=== PATIENT | female | born 1960 | race Caucasian/White ===

== ENCOUNTER 2017-03-01 17:52 | Emergency (ER) | payer BC ==
[~2017-03-01] VITALS: Ht 167.6 cm; Wt 73.0 kg
[~2017-03-01 17:52] MED LIST: PRED20 PO
[2017-03-01 17:55] VITALS: BP 200/106; PULSE 90; RESP 26; TEMP 98.4; O2SAT 98
--- NOTE | 2017-03-01 19:33 | RADRPT ---
EXAM DATE/TIME: 03/01/2017 18:30 [facility] COMPARISON: No previous studies available for comparison. INDICATIONS : Left shoulder pain post fall today. MEDICAL HISTORY : None. SURGICAL HISTORY : None. ENCOUNTER: Initial ACUITY: 1 day PAIN SCORE: 8/10 LOCATION: Left shoulder. FINDINGS: There is fracturing of the left proximal humeral shaft. The glenohumeral and acromioclavicular joints are normally aligned. No other fracture is seen. CONCLUSION: Fracturing of the proximal left humeral shaft. Ravindra Moralez MD on March 01, 2017 at 19:31 Board Certified Radiologist. This report was verified electronically.
--- NOTE | 2017-03-01 20:19 | RADRPT ---
EXAM DATE/TIME: 03/01/2017 18:52 [facility] COMPARISON: No previous studies available for comparison. INDICATIONS : Trauma, fell backwards onto left side. RADIATION DOSE: 45.79 CTDIvol (mGy) MEDICAL HISTORY : None SURGICAL HISTORY : None. ENCOUNTER: Initial ACUITY: 1 day PAIN SCALE: 4/10 LOCATION: cranial TECHNIQUE: Multiple contiguous axial images were obtained of the head. Using automated exposure control and adj ustment of the mA and/or kV according to patient size, radiation dose was kept as low as reasonably a chievable to obtain optimal diagnostic quality images. DICOM format image data is available electro nically for review and comparison. FINDINGS: CEREBRUM: The ventricles are normal for age. No evidence of midline shift, mass lesion, hemorrhage or acute in farction. No extra-axial fluid collections are seen. Basal ganglia calcifications are seen. POSTERIOR FOSSA: The cerebellum and brainstem are intact. The 4th ventricle is midline. The cerebellopontine angle i s unremarkable. EXTRACRANIAL: The visualized portion of the orbits is intact. SKULL: The calvaria is intact. No evidence of skull fracture. CONCLUSION: No acute disease. Ravindra Moralez MD on March 01, 2017 at 20:16 Board Certified Radiologist. This report was verified electronically.
--- NOTE | 2017-03-01 20:26 | RADRPT ---
EXAM DATE/TIME: 03/01/2017 18:52 [facility] COMPARISON: No previous studies available for comparison. INDICATIONS : Trauma, fell backwards onto left side. RADIATION DOSE: 41.28 CTDIvol (mGy) MEDICAL HISTORY : None SURGICAL HISTORY : None. ENCOUNTER: Initial ACUITY: 1 day PAIN SCALE: 4/10 LOCATION: Neck TECHNIQUE: Volumetric scanning of the cervical spine was performed. Multiplanar reconstructions i n the sagittal, coronal and oblique axial planes were performed. Using automated exposure control a nd adjustment of the mA and/or kV according to patient size, radiation dose was kept as low as reason ably achievable to obtain optimal diagnostic quality images. DICOM format image data is available e lectronically for review and comparison. FINDINGS: VERTEBRAE: Normal vertebral body height. ALIGNMENT: No evidence of subluxation. C2-C3: The bony spinal canal is normal in size. No evidence of disc bulge or herniation. The neura l foramina are bilaterally patent. C3-C4: The bony spinal canal is normal in size. No evidence of disc bulge or herniation. The neura l foramina are bilaterally patent. C4-C5: Disc demonstrates decreased height. There is very prominent posterior hypertrophic change pos terior to the C4 vertebral body and the C5 vertebral body causing a moderate impression on the anteri or aspect of the thecal sac. The neural foramina are normal. C5-C6: Disc demonstrates decreased height. There is mild disc bulge. There is prominent posterior osteophytic ridging. These changes cause moderate narrowing of the thecal sac. There is uncovertebr al hypertrophy being worse on the right. There is narrowing of the right neural foramina. The left n eural foramina appears grossly patent. C6-C7: Disc demonstrates decreased height. There is mild bulging without significant stenosis. The neural foramina are normal. C7-T1: The bony spinal canal is normal in size. No evidence of disc bulge or herniation. The neura l foramina are bilaterally patent. CONCLUSION: 1. No acute bony injury is seen. 2. Prominent degenerative change at the C4-C5 level with very prominent calcification posterior to th e C4 and C5 vertebral bodies likely related to degenerative change. Some degree of ossification of t he posterior longitudinal ligament could also be contributing to this appearance. The bony hypertroph ic change causes severe narrowing of the thecal sac at the C4-C5 level. 3. Moderate narrowing of the thecal sac at the C5-C6 level secondary to disc bulge and prominent oste ophytic ridging. Ravindra Moralez MD on March 01, 2017 at 20:17 Board Certified Radiologist. This report was verified electronically.
[2017-03-01 20:49] VITALS: BP 167/86; PULSE 74; RESP 16; O2SAT 98
[2017-03-01] MEDS ORDERED: NORC5TAB PO (21:12)
--- NOTE | 2017-03-01 21:12 | PD ---
HPI Chief Complaint: Injury Time Seen by Provider: 20:56 Travel History International Travel<30 days: No Contact w/Intl Traveler<30days: No Traveled to known affect area: No History of Present Illness HPI 57 years old female complains of left shoulder pain, and headache. Patient states that she fell this afternoon. Patient denies loss of consciousness. Patient patient states that she has mild aching headache. Patient denies any visual change. Patient denies any neck pain. Patient denies any chest pain or shortness of breath. Patient denies abdominal pain. Patient complains of severe sharp pain localized to left shoulder. Patient denies any pain radiation. Patient states that the pain is worse with movement of left shoulder joint. On a scale of 1-10 the pain is a 10. PFSH Past Medical History Diminished Hearing: No Musculoskeletal: Yes (Osteoporosis) Tetanus Vaccination: > 5 Years Influenza Vaccination: No Past Surgical History Thoracic Surgery: Yes (Cyst removed from left breast.) Social History Alcohol Use: No Tobacco Use: No Substance Use: No Allergies-Medications (Allergen,Severity, Reaction): Coded Allergies: Sulfa (Sulfonamide Antibiotics) (Unverified Allergy, Intermediate, Nausea/ Vomiting, 03/01/17) ciprofloxacin (Unverified Allergy, Intermediate, Rash, nausea, palm peeling, 03/01/17) iodine (Unverified Allergy, Intermediate, Rash, nausea, shortness of breath, 03/01/17) ipratropium (Unverified Allergy, Intermediate, Rash, nausea, 03/01/17) penicillin G (Unverified Allergy, Intermediate, Rash, nausea, shortness of breath, 03/01/17) potassium iodide (Unverified Allergy, Intermediate, Rash, nausea, shortness of breath, 03/01/17) povidone-iodine (Unverified Allergy, Intermediate, Rash, nausea, shortness of breath, 03/01/17) sodium iodide (Unverified Allergy, Intermediate, Rash, nausea, shortness of breath, 03/01/17) sodium iodide (Unverified Allergy, Intermediate, Rash, nausea, shortness of breath, 03/01/17) Uncoded Allergies: DigestActiv with Essential Enzymes Dietary Supplement (Allergy, Severe, SHORTNESS OF BREATH, 03/20/15) SWOLLEN, ITCHY RED EYES SHORTNESS OF BREATH CHEST TIGHTNESS Reported Meds & Prescriptions Reported Meds & Active Scripts Active No Active Prescriptions or Reported Medications Review of Systems General / Constitutional: No: Fever Eyes: No: Visual changes HENT: No: Headaches Cardiovascular: No: Chest Pain or Discomfort Respiratory: No: Shortness of Breath Gastrointestinal: No: Abdominal Pain Genitourinary: No: Dysuria Musculoskeletal: Positive: Pain Skin: No Rash Neurologic: No: Weakness Psychiatric: No: Depression Endocrine: No: Polydipsia Hematologic/Lymphatic: No: Easy Bruising Physical Exam Narrative GENERAL: Well-nourished, well-developed patient. SKIN: Focused skin assessment warm/dry. HEAD: Normocephalic. EYES: No scleral icterus. No injection or drainage. NECK: Supple, trachea midline. No JVD or lymphadenopathy. CARDIOVASCULAR: Regular rate and rhythm without murmurs, gallops, or rubs. RESPIRATORY: Breath sounds equal bilaterally. No accessory muscle use. GASTROINTESTINAL: Abdomen soft, non-tender, nondistended. MUSCULOSKELETAL: Patient has severe tenderness on palpation left shoulder joint. Sensory motor function distally intact. BACK: Nontender without obvious deformity. No CVA tenderness. Neurologic exam normal. Data Data Last Documented VS Vital Signs Date Time Temp Pulse Resp B/P (MAP) Pulse Ox O2 Delivery O2 Flow Rate FiO2 03/01/17 20:49 73 16 98 Room Air 03/01/17 20:49 (137) 03/01/17 17:[address] Brain W/O Iv Contrast(Rout) (03/01/17 ) Ct Cerv Spine W/O Contrast (03/01/17 ) Shoulder, Limited(2vws) (03/01/17 ) Morphine Inj (Morphine Inj) (03/01/17 21:15) Ondansetron Odt (Zofran Odt) (03/01/17 21:15) Splint Or Brace Apply/Monitor (03/01/17 21:04) MDM Medical Decision Making Medical Screen Exam Complete: Yes Emergency Medical Condition: Yes Interpretation(s) Last Impressions Shoulder X-Ray 03/01/17 0000 Signed Impressions: Service Date/Time: Wednesday, March 01, 2017 18:30 - CONCLUSION: Fracturing of the proximal left humeral shaft. Ravindra Moralez MD Head CT 03/01/17 0000 Signed Impressions: Service Date/Time: Wednesday, March 01, 2017 18:52 - CONCLUSION: No acute disease. Ravindra Moralez MD Differential Diagnosis Differential diagnosis including head injury, neck injury, shoulder injury. Narrative Course 57 years old female with head injury, left shoulder injury. Status post fall. Morphine 4 mg IM. Zofran 4 mg ODT. [id number] applied to left arm. Diagnosis Primary Impression: Fracture of left humerus Qualified Codes: S42.292A - Other displaced fracture of upper end of left humerus, initial encounter for closed fracture Additional Impression: Closed head injury Qualified Codes: S09.90XA - Unspecified injury of head, initial encounter Patient Instructions: General Instructions Med/Other Pt SpecificInfo: Prescription(s) given Scripts Hydrocodone/Acetaminophen (Rodman 5-325 Tablet) 5 Mg-325 Mg Tablet 1 TAB PO Q6HR for Pain, #20 Prov: Davidson Santillan MD 03/01/17 Disposition: 01 DISCHARGE HOME Condition: Stable Davidson Santillan MD Mar 01, 2017 21:12
[2017-03-01] MEDS ORDERED: MORPHINE SULFATE 4 MG/ML INJ IM ONE (21:15)
[2017-03-01] MEDS ORDERED: ONDANSETRON ODT 4 MG TAB PO ONE (21:15)
[2017-03-01] MEDS ORDERED: KETOROLAC TROMETHAMINE 30 MG/ML (IVP) VIAL IV PUSH ONE (22:00)
== END 2017-03-01 21:48 | disposition home or self-care (01) ==
LOC: NEPD 17:52
DX: S42.292A Other displaced fracture of upper end of left humerus, initial encounter for closed fracture (principal); S09.90XA Unspecified injury of head, initial encounter; Z87.39 Personal history of other diseases of the musculoskeletal system and connective tissue; W19.XXXA Unspecified fall, initial encounter
CPT/HCPCS: 70450; 72125; 73030; 96372; 99285; J1885; J2270

== ENCOUNTER 2017-03-03 17:13 | Inpatient (IN) | payer BC ==
[~2017-03-03] VITALS: Ht 165.1 cm; Wt 75.0 kg
[~2017-03-03 17:13] MED LIST changes: +NORC5TAB PO
[2017-03-03 17:15] VITALS: BP 186/79; PULSE 86; RESP 20; TEMP 98.5; O2SAT 99
[2017-03-03 17:33] VITALS: BP 175/86; PULSE 91; RESP 16; TEMP 98.8; O2SAT 98
[2017-03-03 17:44] VITALS: BP 175/86; PULSE 101; RESP 16; O2SAT 99
--- NOTE | 2017-03-03 17:48 | PD ---
HPI Chief Complaint: Pain: Acute or Chronic Time Seen by Provider: 17:38 Travel History International Travel<30 days: No Contact w/Intl Traveler<30days: No Traveled to known affect area: No History of Present Illness HPI 57-year-old Citizen Of [place] female previously seen on March 01 for fall with proximal humerus fracture. Patient states he was given Lortab, but developed itching and swelling to the feet and hands so she discontinued it. Patient states she was seen by an orthopedic today who stated that she should be seen immediately for possible surgical open reduction and fixation. This was not an orthopedist here at [facility], but the patient wanted to return here for further evaluation as needed. Patient states her pain is currently 8 out of 10. She complains of burning down into her left hand. She states allergies to sulfa, Cipro, hydrocodone, iodine, ipratropium, penicillin, potassium iodide , povidone iodine, and sodium iodide. PFSH Past Medical History Medical History: Denies Significant Hx Diminished Hearing: No Musculoskeletal: Yes (Osteoporosis) Immunizations Current: Yes Tetanus Vaccination: > 5 Years Influenza Vaccination: No ?: Not Past Surgical History Thoracic Surgery: Yes (Cyst removed from left breast.) Other Surgery: Yes Social History Alcohol Use: No Tobacco Use: No Substance Use: No Allergies-Medications (Allergen,Severity, Reaction): Coded Allergies: Sulfa (Sulfonamide Antibiotics) (Unverified Allergy, Intermediate, Nausea/ Vomiting, 03/03/17) ciprofloxacin (Unverified Allergy, Intermediate, Rash, nausea, palm peeling, 03/03/17) hydrocodone (Verified Allergy, Intermediate, RASH, 03/03/17) iodine (Unverified Allergy, Intermediate, Rash, nausea, shortness of breath, 03/03/17) ipratropium (Unverified Allergy, Intermediate, Rash, nausea, 03/03/17) penicillin G (Unverified Allergy, Intermediate, Rash, nausea, shortness of breath, 03/03/17) potassium iodide (Unverified Allergy, Intermediate, Rash, nausea, shortness of breath, 03/03/17) povidone-iodine (Unverified Allergy, Intermediate, Rash, nausea, shortness of breath, 03/03/17) sodium iodide (Unverified Allergy, Intermediate, Rash, nausea, shortness of breath, 03/03/17) sodium iodide (Unverified Allergy, Intermediate, Rash, nausea, shortness of breath, 03/03/17) Uncoded Allergies: DigestActiv with Essential Enzymes Dietary Supplement (Allergy, Severe, SHORTNESS OF BREATH, 03/20/15) SWOLLEN, ITCHY RED EYES SHORTNESS OF BREATH CHEST TIGHTNESS Reported Meds & Prescriptions Reported Meds & Active Scripts Active No Active Prescriptions or Reported Medications Review of Systems Except as stated in HPI: all other systems reviewed are Neg General / Constitutional: No: Fever Eyes: No: Visual changes HENT: No: Headaches Cardiovascular: No: Chest Pain or Discomfort Respiratory: No: Shortness of Breath Gastrointestinal: No: Abdominal Pain Genitourinary: No: Dysuria Musculoskeletal: Positive: Arthralgias, Limited ROM, Pain Skin: No Rash Neurologic: No: Weakness Psychiatric: No: Depression Endocrine: No: Polydipsia Hematologic/Lymphatic: No: Easy Bruising Physical Exam Narrative GENERAL: Patient appears in mild distress. SKIN: Warm and dry. Normal color. Normal turgor. Patient has noticeable resolving hives consistent with history. HEAD: Atraumatic. Normocephalic. EYES: Pupils equal and round. No scleral icterus. No injection or drainage. ENT: No nasal bleeding or discharge. Mucous membranes pink and moist. Pharynx is clear. Airway is patent. NECK: Trachea midline. Supple and nontender. CARDIOVASCULAR: Regular rate and rhythm. RESPIRATORY: No accessory muscle use. Clear to auscultation. Breath sounds equal bilaterally. GASTROINTESTINAL: Abdomen soft, non-tender, nondistended. Hepatic and splenic margins not palpable. MUSCULOSKELETAL: Extremities without clubbing, cyanosis, or edema. No obvious deformities. Patient has pain to the left shoulder with any movement. Neurovascular exam distally is intact, with immigration judge strength normal, limited by pain. NEUROLOGICAL: Awake and alert. No obvious cranial nerve deficits. Motor grossly within normal limits. Five out of 5 muscle strength in the arms and legs. Normal speech. PSYCHIATRIC: Appropriate mood and affect; insight and judgment normal. Data Data Last Documented VS Vital Signs Date Time Temp Pulse Resp B/P (MAP) Pulse Ox O2 Delivery O2 Flow Rate FiO2 03/03/17 17:44 101 16 175/86 (115) 99 Room Air 03/03/17 17:33 98.8 MDM Medical Decision Making Medical Screen Exam Complete: Yes Emergency Medical Condition: Yes Medical Record Reviewed: Yes Differential Diagnosis Left proximal humerus fracture. Need for pain control. Possible need for orthopedic ORIF. Narrative Course Patient is medically stable at time of exam per IV access is obtained patient is given 4 mg morphine IV as well as 4 mg Zofran IV. Call was placed to Dr. Montoya, orthopedic on-call, to discuss the patient. Copies of the x-rays were sent to Dr. Montoya for his review. Patient was discussed with Dr. Montoya who does feel the patient warrants ORIF. Patient will be admitted by Dr. Tariq, nothing by mouth after midnight for going to the OR tomorrow. Diagnosis Primary Impression: Closed fracture of left proximal humerus Qualified Codes: S42.292K - Other displaced fracture of upper end of left humerus, subsequent encounter for fracture with nonunion Admitting Information Admitting Physician Requests: Observation Scripts No Active Prescriptions or Reported Meds Condition: Stable Arpit Torres Mar 03, 2017 17:48
[2017-03-03 19:00] VITALS: BP 121/71; PULSE 75; RESP 16; TEMP 97.5; O2SAT 94
--- NOTE | 2017-03-03 19:29 | HHI.HP ---
HPI Service [facility] Primary Care Physician Calixto Callejas, Admission Diagnosis Left Humerous Fracture Diagnoses: (1) Fall Diagnosis: Principal (2) Proximal humerus fracture Diagnosis: Principal (3) HTN (hypertension) Diagnosis: Principal Travel History International Travel<30 Days: No Contact w/Intl Traveler <30 Da: No Traveled to Known Affected Are: No History of Present Illness This is a 57-year-old female with PMH of HTN who presented to the ER with complaints of left shoulder pain x2 days. Seen in ER on 03/01/17 after fall for similar complaints. No head trauma or LOC reported. X-ray w/ fracture of proximal left humeral shaft. D/c'd w/ José and referred to Ortho as outpatient. States she was seen by Ortho as outpatient today and sent to the ER for surgical intervention. On arrival, BP 186/79, HR 86, O2 sat 99% on RA, Afebrile. CBC unremarkable. Chemistry unremarkable. INR 1.0. CXR normal. Dr. Montoya consulted by ER physician, plan is for surgical intervention a.m. Review of Systems Except as stated in HPI: all other systems reviewed are Neg ROS: 14 point review of systems otherwise negative. Past Family Social History Past Medical History PMH: HTN Past Surgical History PAST SURGICAL HISTORY: Left Breast Cystectomy Allergies: Coded Allergies: Sulfa (Sulfonamide Antibiotics) (Unverified Allergy, Intermediate, Nausea/ Vomiting, 03/03/17) ciprofloxacin (Unverified Allergy, Intermediate, Rash, nausea, palm peeling, 03/03/17) hydrocodone (Verified Allergy, Intermediate, RASH, 03/03/17) iodine (Unverified Allergy, Intermediate, Rash, nausea, shortness of breath, 03/03/17) ipratropium (Unverified Allergy, Intermediate, Rash, nausea, 03/03/17) penicillin G (Unverified Allergy, Intermediate, Rash, nausea, shortness of breath, 03/03/17) potassium iodide (Unverified Allergy, Intermediate, Rash, nausea, shortness of breath, 03/03/17) povidone-iodine (Unverified Allergy, Intermediate, Rash, nausea, shortness of breath, 03/03/17) sodium iodide (Unverified Allergy, Intermediate, Rash, nausea, shortness of breath, 03/03/17) sodium iodide (Unverified Allergy, Intermediate, Rash, nausea, shortness of breath, 03/03/17) Uncoded Allergies: DigestActiv with Essential Enzymes Dietary Supplement (Allergy, Severe, SHORTNESS OF BREATH, 03/20/15) SWOLLEN, ITCHY RED EYES SHORTNESS OF BREATH CHEST TIGHTNESS Family History PAST FAMILY HISTORY: Reviewed. No h/o DM or CAD Social History PAST SOCIAL HISTORY: Negative for alcohol, tobacco or drugs. Physical Exam Vital Signs Vital Signs Date Time Temp Pulse Resp B/P (MAP) Pulse Ox O2 Delivery O2 Flow Rate FiO2 03/03/17 17:44 101 16 175/86 (115) 99 Room Air 03/03/17 17:33 98.8 91 16 175/86 (115) 98 03/03/17 17:15 98.5 86 20 186/79 (114) 99 Room Air Physical Exam PE: GENERAL: Pleasant middle-aged female in no acute distress. HEENT: PERRLA, EOMI. No scleral icterus or conjunctival pallor. No lid lag or facial droop. CARDIOVASCULAR: Regular rate and rhythm. No obvious murmurs to auscultation. No chest tenderness to palpation. RESPIRATORY: No obvious rhonchi or wheezing. Clear to auscultation. Breath sounds equal bilaterally. GASTROINTESTINAL: Abdomen soft, non-tender, nondistended. BS normal. MUSCULOSKELETAL: Extremities without clubbing, cyanosis, or edema. No obvious deformities. Decreased ROM of LUE due to pain. NEUROLOGICAL: Awake, alert and oriented x4. No focal neurologic deficits. Moving both upper and lower extremities spontaneously. Caprini VTE Risk Assessment Caprini VTE Risk Assessment: Mod/High Risk (score >= 2) Caprini Risk Assessment Model Point Value = 1 Point Value = 2 Point Value = 3 Point Value = 5 Age 41-60 Minor surgery BMI > 25 kg/m2 Swollen legs Varicose veins or History of unexplained or recurrent spontaneous Oral contraceptives or hormone replacement Sepsis (< 1 month) Serious lung disease, including pneumonia (< 1 month) Abnormal pulmonary function Acute myocardial infarction Congestive heart failure (< 1 month) History of inflammatory bowel disease Medical patient at bed rest Age 61-74 Arthroscopic surgery Major open surgery (> 45 min) Laparoscopic surgery (> 45 min) Malignancy Confined to bed (> 72 hours) Immobilizing plaster cast Central venous access Age >= 75 History of VTE Family history of VTE Factor V Leiden Prothrombin [id number] Lupus anticoagulant Anticardiolipin antibodies Elevated serum homocysteine Heparin-induced thrombocytopenia Other congenital or acquired thrombophilia Stroke (< 1 month) Elective arthroplasty Hip, pelvis, or leg fracture Acute spinal cord injury (< 1 month) Prophylaxis Regimen Total Risk Factor Score Risk Level Prophylaxis Regimen 0-1 Low Early ambulation 2 Moderate Order ONE of the following: *Sequential Compression Device (SCD) *Heparin 5000 units SQ BID 3-4 Higher Order ONE of the following medications: *Heparin 5000 units SQ TID *Enoxaparin/Lovenox 40 mg SQ daily (WT < 150 kg, CrCl > 30 mL/min) *Enoxaparin/Lovenox 30 mg SQ daily (WT < 150 kg, CrCl > 10-29 mL/min) *Enoxaparin/Lovenox 30 mg SQ BID (WT < 150 kg, CrCl > 30 mL/min) AND/OR *Sequential Compression Device (SCD) 5 or more Highest Order ONE of the following medications: *Heparin 5000 units SQ TID (Preferred with Epidurals) *Enoxaparin/Lovenox 40 mg SQ daily (WT < 150 kg, CrCl > 30 mL/min) *Enoxaparin/Lovenox 30 mg SQ daily (WT < 150 kg, CrCl > 10-29 mL/min) *Enoxaparin/Lovenox 30 mg SQ BID (WT < 150 kg, CrCl > 30 mL/min) AND *Sequential Compression Device (SCD) Assessment and Plan Problem List: (1) Fall ICD Code: W19.XXXA - Unspecified fall, initial encounter (2) Proximal humerus fracture ICD Code: S42.209A - Unspecified fracture of upper end of unspecified humerus, initial encounter for closed fracture (3) HTN (hypertension) ICD Code: I10 - Essential (primary) hypertension Assessment and Plan A/P: 1. Fall: s/p mechanical fall 03/01/17, seen in ER at that time, CT Head/C- Spine from 03/01/17 w/ no acute findings, images reviewed by me. 2. Left Prox Humerus Fx: secondary to above. Shoulder X-ray 03/01/17 w/ fracture of proximal left humeral shaft, images reviewed by me. Seen by Ortho today, referred to ER for surgical intervention. Dr. Montoya consulted, plan is for surgery in am. NPO, IVF, analgesics/antiemetics as needed. CXR w/ no acute findings, images reviewed by me. Pre-op labs unremarkable. 3. HTN: BP uncontrolled, likely compounded by pain complaints. BP 186/79, HR 86 on arrival, currently 133/70, HR 82 after analgesics. Monitor BP, optimize pain control 4. DVT Prophylaxis: Anticoagulation post op per Ortho 5. Social work for d/c planning as needed. 6. Case discussed w/ ER physician at length. Physician Certification 2 Midnight Certification Type: Admission for Inpatient Services Order for Inpatient Services The services are ordered in accordance with Medicare regulations or non- Medicare payer requirements, as applicable. In the case of services not specified as inpatient-only, they are appropriately provided as inpatient services in accordance with the 2-midnight benchmark. Estimated LOS (days): 2 days is the estimated time the patient will need to remain in the hospital, assuming treatment plan goals are met and no additional complications. Post-Hospital Plan: Not yet determined Conchis Read MD Mar 03, 2017 19:29
[2017-03-03] MEDS ORDERED: SODIUM CHLORIDE 0.9% FLUSH 10 ML FLUSH IV FLUSH PRN (19:30)
[2017-03-03] MEDS ORDERED: ACETAMINOPHEN 325 MG TAB PO PRN (19:30)
[2017-03-03] MEDS ORDERED: BISACODYL 10 MG SUPP RECTAL PRN (19:30)
[2017-03-03] MEDS ORDERED: SENNOSIDES 8.6 MG TAB PO PRN (19:30)
[2017-03-03] MEDS ORDERED: HYDROmorphone HCL PF 1 MG/ML VIAL IV PUSH ONE (19:30)
[2017-03-03] MEDS ORDERED: HYDROmorphone HCL 2 MG TAB PO PRN (19:30)
[2017-03-03] MEDS ORDERED: HYDROmorphone HCL PF 1 MG/ML VIAL IV PUSH PRN (19:30)
[2017-03-03] MEDS ORDERED: MAGNESIUM HYDROXIDE SUSP 30 ML CUP PO PRN (19:30)
[2017-03-03] MEDS ORDERED: ONDANSETRON HCL 4 MG/2 ML VIAL IVP PRN (19:30)
[2017-03-03] MEDS ORDERED: LACTULOSE SYRUP 20 GM/30 ML CUP PO PRN (19:30)
[2017-03-03] MEDS: SODIUM CHLOR 0.9% 1000 ML INJ 1,000 ML IV SCH (19:40)
[2017-03-03 19:53] LABS: AUTOMATED NEUTROPHIL # 4.6 TH/MM3 (1.8-7.7); BASOPHIL % 0.4 % (0.0-2.0); EOSINOPHIL # 0.2 TH/MM3 (0-0.4); EOSINOPHIL % 2.4 % (0.0-4.0); HEMATOCRIT 40.8 % (35.0-46.0); HEMO FLAGS DIFF FINAL; LYMPH % 29.5 % (9.0-44.0); LYMPHOCYTE # 2.2 TH/MM3 (1.0-4.8); MEAN CELL VOLUME 81.1 FL (80.0-100.0); MEAN CORPUSCULAR HEMOGLOBIN 27.3 PG (27.0-34.0); MEAN CORPUSCULAR HGB CONC 33.7 % (32.0-36.0); MONO % 5.9 % (0.0-8.0); NEUT % 61.8 % (16.0-70.0); PLATELET COUNT 243 TH/MM3 (150-450); RED BLOOD COUNT 5.03 MIL/MM3 (4.00-5.30); RED CELL DISTRIBUTION WIDTH 14.1 % (11.6-17.2); WHITE BLOOD COUNT 7.5 TH/MM3 (4.0-11.0)
[2017-03-03 19:54] VITALS: BP 133/70
--- NOTE | 2017-03-03 20:03 | RADRPT ---
EXAM DATE/TIME: 03/03/2017 19:34 [facility] COMPARISON: No previous studies available for comparison. INDICATIONS : Evaluate for pneumonia, pneumothorax, and communicable disease. Pre op humerus surgery. MEDICAL HISTORY : None. SURGICAL HISTORY : None. ENCOUNTER: Initial ACUITY: 1 day PAIN SCORE: 0/10 LOCATION: Bilateral chest FINDINGS: A single view of the chest demonstrates the lungs to be symmetrically aerated without evidence of mas s, infiltrate or effusion. The cardiomediastinal contours are unremarkable. Osseous structures are intact. CONCLUSION: Normal examination. Ravindra Moralez MD on March 03, 2017 at 20:01 Board Certified Radiologist. This report was verified electronically.
[2017-03-03 20:07] LABS: ANION GAP 6 MEQ/L (5-15); AST (GOT) 18 U/L (15-37); BICARBONATE 29.2 MEQ/L (21.0-32.0); BLOOD UREA NITROGEN 12 MG/DL (7-18); CHLORIDE 106 MEQ/L (98-107); GLOMERULAR FILTRATION RATE 96 ML/MIN (>89); POTASSIUM 3.9 MEQ/L (3.5-5.1); SODIUM (NA) 141 MEQ/L (136-145)
[2017-03-03 20:08] LABS: ALT (GPT) 39 U/L (10-53)
[2017-03-03 20:10] LABS: ALKALINE PHOSPHATASE 71 U/L (45-117); TOTAL BILIRUBIN ADULT 1.3 MG/DL (0.2-1.0)
[2017-03-03] MEDS ORDERED: SODIUM CHLORIDE 0.9% FLUSH 10 ML FLUSH IV FLUSH SCH (21:00)
[2017-03-03] MEDS: DOCUSATE SODIUM 50 MG/SENNA 8.6 MG TAB PO SCH (22:06)
[2017-03-04] VITALS: BP 113/62; PULSE 75; RESP 16; TEMP 98.4; O2SAT 95
[2017-03-04] MEDS: SODIUM CHLOR 0.9% 1000 ML INJ 1,000 ML IV SCH ×2 (05:26→15:26)
--- NOTE | 2017-03-04 06:42 | PD.ORT.PN ---
Subjective Subjective Remarks s/p fall on tuesday. reports left shoulder pain. Objective Vitals Vital Signs Date Time Temp Pulse Resp B/P (MAP) Pulse Ox O2 Delivery O2 Flow Rate FiO2 03/04/17 00:00 98.4 75 16 113/62 (79) 95 03/03/17 20:12 Room Air 03/03/17 19:54 82 16 133/70 (91) 95 03/03/17 19:00 97.5 75 16 121/71 (88) 94 03/03/17 17:44 101 16 175/86 (115) 99 Room Air 03/03/17 17:33 98.8 91 16 175/86 (115) 98 03/03/17 17:15 98.5 86 20 186/79 (114) 99 Room Air I/O 03/03/17 03/03/17 03/03/17 03/04/17 03/04/17 03/04/17 07:00 15:00 23:00 07:00 15:00 23:00 Intake Total 480 ml 1178 ml Balance 480 ml 1178 ml Intake Oral 480 ml 250 ml IV Total 928 ml # Voids 1 2 # Bowel Movements 0 0 Result Diagram: 03/03/17193403/03/171934 Other Results Laboratory Tests Test 03/03/17 19:35 Prothromb Time International Ratio 1.0 RATIO Prothrombin Time 11.0 SEC (9.8-11.6) Objective Remarks LUE: +sling. noted bruising of shoulder. pain to elbow. full motion of fingers. NVI Assessment & Plan Assessment and Plan 1) Left Proximal Humerus Fx -npo -sign consents -plan for surgery today 2) Left Elbow Pain -will order STAT xray to r/o and fx Jayme Abrams Mar 04, 2017 06:42
[2017-03-04] MEDS ORDERED: ENDO7.5T10 PO (06:46)
--- NOTE | 2017-03-04 06:47 | HHI.FF ---
Face to Face Verification Diagnosis: (1) Closed fracture of left proximal humerus Occupational Therapy Left UE Weight Bearing: Non WB Left UE Range of Motion: Pendular Nursing Dressing Changes: Daily dressing change, 4x4s, Paper tape, Xeroform I have seen patient Sadaf Morris on 03/04/17. My clinical findings support the need for the requested home health care services because: Ltd mobility - disease progression I certify that my clinical findings support that this patient is homebound because: Post-op weakness Jayme Abrams Mar 04, 2017 06:47
[2017-03-04 06:57] LABS: AUTOMATED NEUTROPHIL # 4.7 TH/MM3 (1.8-7.7); BASOPHIL % 0.3 % (0.0-2.0); EOSINOPHIL # 0.1 TH/MM3 (0-0.4); EOSINOPHIL % 1.4 % (0.0-4.0); HEMATOCRIT 36.6 % (35.0-46.0); HEMO FLAGS DIFF FINAL; LYMPH % 23.6 % (9.0-44.0); LYMPHOCYTE # 1.6 TH/MM3 (1.0-4.8); MEAN CELL VOLUME 81.3 FL (80.0-100.0); MEAN CORPUSCULAR HEMOGLOBIN 27.8 PG (27.0-34.0); MEAN CORPUSCULAR HGB CONC 34.2 % (32.0-36.0); MONO % 5.2 % (0.0-8.0); NEUT % 69.5 % (16.0-70.0); PLATELET COUNT 189 TH/MM3 (150-450); RED CELL DISTRIBUTION WIDTH 13.4 % (11.6-17.2); WHITE BLOOD COUNT 6.7 TH/MM3 (4.0-11.0)
[2017-03-04 07:02] LABS: ALT (GPT) 37 U/L (10-53); ANION GAP 6 MEQ/L (5-15); AST (GOT) 18 U/L (15-37); BICARBONATE 25.8 MEQ/L (21.0-32.0); BLOOD UREA NITROGEN 12 MG/DL (7-18); CHLORIDE 108 MEQ/L (98-107); GLOMERULAR FILTRATION RATE 141 ML/MIN (>89); POTASSIUM 3.9 MEQ/L (3.5-5.1); SODIUM (NA) 140 MEQ/L (136-145)
[2017-03-04 07:05] LABS: ALKALINE PHOSPHATASE 64 U/L (45-117); TOTAL BILIRUBIN ADULT 1.4 MG/DL (0.2-1.0)
--- NOTE | 2017-03-04 07:43 | RADRPT ---
EXAM DATE/TIME: 03/04/2017 07:15 [facility] COMPARISON: No previous studies available for comparison. INDICATIONS : Fracture humerus, pain with swelling elbow. MEDICAL HISTORY : None. SURGICAL HISTORY : None. ENCOUNTER: Subsequent ACUITY: 2 days PAIN SCORE: 10/10 LOCATION: Left elbow. FINDINGS: Two view examination of the left elbow demonstrates no soft tissue swelling, joint effusion, fracture or dislocation. Bony mineralization is normal. CONCLUSION: Unremarkable limited examination of the left elbow. Sudeep Finnegan MD on March 04, 2017 at 7:41 Board Certified Radiologist. This report was verified electronically.
[2017-03-04] MEDS ORDERED: ACETAMINOPHEN 1000 MG/100 ML 100 ML IV ONE (07:57)
[2017-03-04 08:00] VITALS: BP 133/81; PULSE 95; RESP 18; TEMP 98.8; O2SAT 97
[2017-03-04] MEDS ORDERED: GENTAMICIN SULFATE 80 MG/2 ML VIAL ONE (08:13)
[2017-03-04] MEDS ORDERED: SODIUM CHLOR 0.9% 250 ML INJ 250 ML ONE (08:13)
[2017-03-04] MEDS ORDERED: VANCOMYCIN HCL 1000 MG VIAL ONE (08:13)
--- NOTE | 2017-03-04 08:31 | MB ---
cc: KEVIN TAYLOR CAMILLE MD DATE OF CONSULTATION: 03/04/2017 REASON FOR CONSULTATION Left proximal humerus fracture. CONSULTING PHYSICIAN Dr. Read. HISTORY OF PRESENT ILLNESS Ms. Morris is a 57-year-old female with a history of hypertension. She fell approximately three days ago. She landed on her left arm and shoulder. She presented to the emergency room where x-rays revealed a mildly displaced left proximal humerus fracture. She was placed into a sling and swathe. She was recommended to follow-up with orthopedics as an outpatient. She did follow-up with orthopedics in [place] yesterday. The patient has been having severe pain. She is having difficulty sleeping. She could not even stand up to go the bathroom because of the pain in the shoulder. She presented back to the emergency room for evaluation of her left shoulder. She is currently awake and alert on the orthopedic floor. Her only complaint is her left shoulder pain. PAST MEDICAL HISTORY ILLNESSES Hypertension. SURGERIES Left breast cystectomy. ALLERGIES 1. SULFA. 2. CIPRO. 3. HYDROCODONE. 4. IODINE. 5. IPRATROPIUM. 6. PENICILLIN. 7. POTASSIUM. MEDICATIONS Please see the EMR for complete list of inpatient medications. She has been taking hydrocodone which has been causing a rash. FAMILY HISTORY Noncontributory. SOCIAL HISTORY The patient lives with her . She denies alcohol, tobacco or drug use. REVIEW OF SYSTEMS The patient denies headache, visual changes, neck pain, chest pain, shortness of breath, abdominal pain, nausea, vomiting or recent weight loss, numbness or tingling of extremities. She complains of left shoulder pain. She describes a burning sensation in the shoulder. She describes diminished sensation in her fingers. PHYSICAL EXAMINATION GENERAL: The patient is a well-developed, well-nourished 57-year-old female in no acute distress. She is awake and alert. She is alert and oriented x3. VITAL SIGNS: Temperature 98.4, pulse 75, respirations 16, blood pressure 113/62. O2 sat is 95% on room air. HEAD: The patient is normocephalic. Pupils are equal. NECK: Soft, nontender. Trachea is midline. ABDOMEN: Soft, nontender, nondistended. EXTREMITIES: Examination of left arm reveals an area of bruising over the anterior shoulder. She has pain with any shoulder motion. She has minimal tenderness over her elbow. She has intact sensation in radial, ulnar and median nerve distributions. She is able to flex and extend her fingers. Radial pulse is palpable. Skin is intact. Examination of right arm reveals no pain with shoulder, elbow or wrist motion. She has intact sensation in all fingers. She has good capillary refill in all fingers. Skin is intact. Radial pulse is palpable. Examination of bilateral lower extremities reveals no pain with hip, knee or ankle motion. Skin is intact. Dorsalis pedis pulse is palpable. Sensation is intact. Skin is intact to both feet. X-RAYS X-rays of the left shoulder were reviewed. X-rays reveal a mildly displaced left proximal humerus fracture. The glenohumeral joint is reduced. IMPRESSION Left proximal humerus fracture. PLAN The treatment options were discussed with the patient. I discussed with the patient both surgical and nonsurgical options. She states that she is having severe pain and is unable to manage the pain currently. She states that she would like to have surgery. The risks of surgery include bleeding, infection, injuries to arteries, nerves and blood vessels, nonunion, malunion, painful hardware, need for hardware removal, as well as medical complications including blood clot, stroke, heart attack and . The patient is also a [employer]. She declines any and all blood products. All questions were answered. A mid-level provider in my office, nurse practitioner or PA, may see this patient on a follow-up basis and continue to implement the objective of this plan including: Starting or adjusting medications, injections of muscle, tendon, bursa or joints, cast application, orthotic or brace application, physical therapy, further radiographic studies including x-ray, MRI, CT, ultrasounds or bone scan, vascular studies, neurologic studies, or other specialist consultations, and proceeding with surgical management as appropriate. MD IKE Cotto/ERICKA /7:22 AM /8:09 AM
[2017-03-04] MEDS: DOCUSATE SODIUM 50 MG/SENNA 8.6 MG TAB PO SCH ×2 (09:00→21:53)
[2017-03-04] MEDS ORDERED: CLINDAMYCIN PHOS 600 MG/4 ML VIAL ONE (09:04)
--- NOTE | 2017-03-04 10:40 | PD.OP ---
cc: Dieter Diaz MD Operative Report Date of Surgery: Mar 04, 2017 Preoperative Diagnosis: Left proximal humerus fracture Postoperative Diagnosis: Procedure: Open reduction internal fixation left proximal humerus Anesthesia: Gen. Surgeon: Dieter Diaz Leno Sewer(s): ESTHER Washington PA-C The surgical procedure was assisted by my physician hospital administrative assistant. My P.A. presence was necessary throughout this case for the manipulation and positioning of the surgical extremity. My P.A. was assisting me throughout the duration of this procedure. The skill set of a physician hospital administrative assistant was medically necessary to complete this procedure. During the surgical case the surgical appliance fitter was working at the back table and the physician hospital administrative assistant was directly assisting me. Operation and Findings: Patient was seen and evaluated preoperatively. Patient was found to have a displaced left proximal humerus fracture. The risks and benefits of surgical and nonsurgical options were discussed in detail and informed consent was obtained for surgery. Patient was brought to the operating room and placed on or table. IV sedation and GETA were administered by anesthesiologist. Antibiotics were given prior to incision. Operative arm and shoulder were prepped with alcohol followed by Hibiclens and draped usual sterile fashion. Timeout procedure was performed. Procedure began with a 5 inch incision over the anterior shoulder. Cephalic vein was identified. A deltopectoral approach was utilized. The fracture was now visualized. Soft tissue was retracted. Attention was now turned to reduction. Gentle traction was applied. The humeral shaft was reduced to the humeral head. Fracture was manipulated to achieve excellent reduction. Multiplanar fluoroscopy confirmed well aligned fracture. Multiple K wires were used to hold provisional fixation. A Synthes proximal humerus plate was selected. Plate was provisionally held in place K wires. 3.5 cortical screws were used to compress plate to bone. Fluoroscopy confirmed appropriate plate placement and fracture reduction. Multiple locking screws were now placed in the humeral head. Screws were predrilled and premeasured for appropriate length. Care was taken not to penetrate the articular surface. Additional screws were placed in the humeral shaft. Final fluoroscopy revealed well aligned fracture with well-placed hardware. Wound was thoroughly irrigated. Fascia was closed with #1 Vicryl, subcutaneous tissues closed with 3-0 Vicryl, and skin was closed with nabila. Sterile dressings were applied. Patient was placed into a sling. Patient was awakened and transferred to recovery in stable condition. Needle and sponge counts were correct. Dieter Diaz MD Mar 04, 2017 10:40
[2017-03-04] MEDS ORDERED: ceFAZolin 2 GM PREMIX 50 ML IV SCH (10:45)
[2017-03-04] MEDS ORDERED: diphenhydrAMINE HCL 25 MG CAP PO PRN (10:45)
[2017-03-04] MEDS ORDERED: MORPHINE SULFATE 4 MG/ML INJ IV PUSH PRN (10:45)
[2017-03-04] MEDS ORDERED: SODIUM CHLORIDE 0.9% FLUSH 5 ML FLUSH IVF PRN (10:45)
[2017-03-04] MEDS ORDERED: ERGOCALCIFEROL (VIT D2) 50,000 UNIT CAP PO SCH (11:00)
[2017-03-04] MEDS ORDERED: DO NOT ADM ANY ANTICOAGULANT DRUGS PRN (11:09)
[2017-03-04] MEDS ORDERED: *HYDROmorphone PF 1 MG VIAL PERIprocedural Use ONLY ONE ×2 (11:40→12:04)
[2017-03-04] MEDS ORDERED: BUPIVACAINE HCL PF 0.5% 30 ML VIAL ONE (12:15)
[2017-03-04] MEDS ORDERED: DEXAMETHASONE SOD PHOS 4 MG/ML VIAL ONE (12:16)
--- NOTE | 2017-03-04 12:30 | RADRPT ---
EXAM DATE/TIME: 03/04/2017 10:28 [facility] COMPARISON: No previous studies available for comparison. INDICATIONS : ORIF of the proximal humerus. MEDICAL HISTORY : Gastroesophageal reflux disease. SURGICAL HISTORY : None. ENCOUNTER: Subsequent ACUITY: 3 days PAIN SCORE: Non-responsive. LOCATION: Left proximal humerus. FINDINGS: Status post internal fixation of fractures involving the humerus. There is good position and alignmen t of the fracture fragments. The hardware is grossly intact. No joint dislocation. CONCLUSION: Good position and alignment on this postoperative view. Chin Vidales MD on March 04, 2017 at 12:28 Board Certified Radiologist. This report was verified electronically.
[2017-03-04] MEDS: KETOROLAC TROMETHAMINE 30 MG/ML (IVP) VIAL IV PUSH SCH ×2 (14:00→21:54)
[2017-03-04] MEDS ORDERED: cloNIDine HCL 0.1 MG TAB PO PRN (15:00)
--- NOTE | 2017-03-04 15:04 | HHI.PR ---
Subjective Remarks patient seen in room with spouse pain free post op no new issues bp normotensive Objective Vitals Vital Signs Date Time Temp Pulse Resp B/P (MAP) Pulse Ox O2 Delivery O2 Flow Rate FiO2 03/04/17 12:45 98.5 83 12 129/67 (87) 98 Nasal Cannula 2 03/04/17 12:35 12 03/04/17 12:30 84 12 138/71 (93) 99 Nasal Cannula 2 03/04/17 12:15 82 12 136/66 (89) 97 Nasal Cannula 2 03/04/17 12:00 79 12 141/78 (99) 96 Nasal Cannula 2 03/04/17 11:45 82 12 146/74 (98) 98 Nasal Cannula 2 03/04/17 11:30 75 11 131/69 (89) 96 Nasal Cannula 2 03/04/17 11:15 74 12 142/88 (106) 100 Nasal Cannula 2 03/04/17 11:03 98.3 90 14 127/86 (100) 100 Nasal Cannula 4 03/04/17 08:00 98.8 95 18 133/81 (98) 97 03/04/17 00:00 98.4 75 16 113/62 (79) 95 03/03/17 20:12 Room Air 03/03/17 19:54 82 16 133/70 (91) 95 03/03/17 19:00 97.5 75 16 121/71 (88) 94 03/03/17 17:44 101 16 175/86 (115) 99 Room Air 03/03/17 17:33 98.8 91 16 175/86 (115) 98 03/03/17 17:15 98.5 86 20 186/79 (114) 99 Room Air I/O 03/03/17 03/03/17 03/03/17 03/04/17 03/04/17 03/04/17 07:00 15:00 23:00 07:00 15:00 23:00 Intake Total 480 ml 1178 ml 800 ml Output Total 226 ml Balance 480 ml 1178 ml 574 ml Intake Oral 480 ml 250 ml IV Total 928 ml 800 ml Output Urine Total 1 ml Estimated Blood Loss 225 ml # Voids 1 2 # Bowel Movements 0 0 Result Diagram: 03/04/1735 03/04/1735 Objective Remarks GENERAL: This is a well-nourished, well-developed patient, in no apparent distress. CARDIOVASCULAR: Regular rate and rhythm without murmurs, gallops, or rubs. RESPIRATORY: Clear to auscultation. Breath sounds equal bilaterally. No wheezes , rales, or rhonchi. GASTROINTESTINAL: Abdomen soft, non-tender, nondistended. Normal active bowel sounds MUSCULOSKELETAL: left sling with post op dressing, other 3 Extremities without clubbing, cyanosis, or edema. NEURO: Alert & Oriented x4 to person, place, time, situation. Moves all ext x4 A/P Problem List: (1) Proximal humerus fracture ICD Code: S42.209A - Unspecified fracture of upper end of unspecified humerus, initial encounter for closed fracture Plan: patient now post op today s/p orif doing well gen anesthesia pain meds and meds prn reviewed with patient and spouse (2) Elevated blood pressure reading ICD Code: R03.0 - Elevated blood-pressure reading, without diagnosis of hypertension Plan: likely due to severe pain and now resolved postop follow on clonidine prn and with adequate pain control Discharge Planning likely dc in Khalida Shaw MD Mar 04, 2017 15:04
[2017-03-04 15:10] VITALS: BP 113/59; PULSE 87; RESP 18; TEMP 98.7; O2SAT 98
[2017-03-04 16:00] VITALS: BP 111/67; PULSE 96; RESP 18; TEMP 97.2; O2SAT 93
[2017-03-04] MEDS: CLINDAMYCIN 600 MG PREMIX 50 ML IV SCH (17:25)
--- NOTE | 2017-03-04 17:45 | EKG ---
Date Performed: 03/03/2017 Time Performed: 20:50:56 PTAGE: 57 years EKG: Sinus rhythm NORMAL ECG NO PREVIOUS TRACING DOCTOR: Kirk Mendoza Interpretating Date/Time 03/04/2017 17:45:05
[2017-03-04 20:00] VITALS: BP 109/57; PULSE 105; RESP 18; TEMP 98; O2SAT 95
[2017-03-04 21:33] VITALS: O2SAT 96
[2017-03-04] MEDS: SODIUM CHLORIDE 0.9% FLUSH 5 ML FLUSH IVF SCH (21:53)
[2017-03-04] MEDS: oxyCODONE/ACETAMINOPHEN 7.5 MG/325 MG TAB PO PRN (21:54)
[2017-03-05] VITALS: BP 100/58; PULSE 82; RESP 18; TEMP 98.6; O2SAT 96
[2017-03-05] MEDS: CLINDAMYCIN 600 MG PREMIX 50 ML IV SCH ×2 (01:13→09:29)
[2017-03-05] MEDS: SODIUM CHLOR 0.9% 1000 ML INJ 1,000 ML IV SCH ×2 (01:26→11:26)
[2017-03-05] MEDS: oxyCODONE/ACETAMINOPHEN 7.5 MG/325 MG TAB PO PRN ×2 (01:39→11:36)
[2017-03-05 04:00] VITALS: BP 106/64; PULSE 76; RESP 18; TEMP 98.2; O2SAT 95
[2017-03-05] MEDS: KETOROLAC TROMETHAMINE 30 MG/ML (IVP) VIAL IV PUSH SCH (05:49)
--- NOTE | 2017-03-05 07:04 | PD.ORT.PN ---
Subjective Subjective Remarks Postoperative day #1 status post ORIF left proximal humerus. Pain well- controlled. Patient did have nerve block postoperatively. Objective Vitals Vital Signs Date Time Temp Pulse Resp B/P (MAP) Pulse Ox O2 Delivery O2 Flow Rate FiO2 03/05/17 04:00 98.2 76 18 106/64 (78) 95 03/05/17 00:00 98.6 82 18 100/58 (72) 96 03/04/17 21:33 96 21 03/04/17 20:30 Room Air 03/04/17 20:00 98.0 105 18 109/57 (74) 95 03/04/17 16:00 97.2 96 18 111/67 (82) 93 03/04/17 15:10 98.7 87 18 113/59 (77) 98 03/04/17 12:45 98.5 83 12 129/67 (87) 98 Nasal Cannula 2 03/04/17 12:35 12 03/04/17 12:30 84 12 138/71 (93) 99 Nasal Cannula 2 03/04/17 12:15 82 12 136/66 (89) 97 Nasal Cannula 2 03/04/17 12:00 79 12 141/78 (99) 96 Nasal Cannula 2 03/04/17 11:45 82 12 146/74 (98) 98 Nasal Cannula 2 03/04/17 11:30 75 11 131/69 (89) 96 Nasal Cannula 2 03/04/17 11:15 74 12 142/88 (106) 100 Nasal Cannula 2 03/04/17 11:03 98.3 90 14 127/86 (100) 100 Nasal Cannula 4 03/04/17 08:00 98.8 95 18 133/81 (98) 97 I/O 03/04/17 03/04/17 03/04/17 03/05/17 03/05/17 03/05/17 07:00 15:00 23:00 07:00 15:00 23:00 Intake Total 1178 ml 1120 ml 530 ml 415 ml Output Total 226 ml Balance 1178 ml 894 ml 530 ml 415 ml Intake Oral 250 ml 320 ml 480 ml 240 ml IV Total 928 ml 800 ml 50 ml 175 ml Output Urine Total 1 ml Estimated Blood Loss 225 ml # Voids 2 1 2 1 # Bowel Movements 0 0 0 0 Result Diagram: 03/04/1735 03/04/17534 Objective Remarks LUE: +sling. Clean dry dressing in place left shoulder. Full motion of fingers. Good capillary refill and fingers. Nerve block working well. Assessment & Plan Assessment and Plan Left Proximal Humerus Fx--postop day #1 status post ORIF Plan on discharge home today if pain controlled after nerve block wears off. OT for pendulum exercises Follow-up in 2 weeks Dieter Lara MD Mar 05, 2017 07:04
[2017-03-05 08:00] VITALS: BP 123/58; PULSE 90; RESP 18; TEMP 98.5; O2SAT 96
[2017-03-05] MEDS: SODIUM CHLORIDE 0.9% FLUSH 5 ML FLUSH IVF SCH (09:00)
[2017-03-05] MEDS ORDERED: CHOLECALCIFEROL (VIT D3) 1000 UNIT TAB PO SCH (09:00)
[2017-03-05] MEDS: DOCUSATE SODIUM 50 MG/SENNA 8.6 MG TAB PO SCH (09:29)
[2017-03-05] MEDS ORDERED: SENN187 PO (10:10)
--- NOTE | 2017-03-05 10:11 | HHI.DCPOC ---
Discharge Care Plan Diagnosis: (1) Closed fracture of left proximal humerus Goals to Promote Your Health * To prevent worsening of your condition and complications * To maintain your health at the optimal level Directions to Meet Your Goals Take your medications as prescribed Follow your dietary instruction Follow activity as directed Keep your appointments as scheduled Take your immunizations and boosters as scheduled If your symptoms worsen call your PCP, if no PCP go to Urgent Care Center or Emergency Room Smoking is Dangerous to Your Health. Avoid second hand smoke Call the 24-hour hour crisis hotline for domestic abuse at Khalida Lockwood MD Mar 05, 2017 10:11
--- NOTE | 2017-03-05 10:12 | HHI.DS ---
Discharge Summary Admission Date Mar 03, 2017 at 19:29 Discharge Date: Mar 05, 2017 Admitting Diagnosis Left Humerous Fracture (1) Proximal humerus fracture ICD Code: S42.209A - Unspecified fracture of upper end of unspecified humerus, initial encounter for closed fracture (2) Elevated blood pressure reading ICD Code: R03.0 - Elevated blood-pressure reading, without diagnosis of hypertension Procedures ORIF of left humeral fracture Brief History - From Admission This is a 57-year-old female with PMH of HTN who presented to the ER with complaints of left shoulder pain x2 days. Seen in ER on 03/01/17 after fall for similar complaints. No head trauma or LOC reported. X-ray w/ fracture of proximal left humeral shaft. D/c'd w/ [facility] and referred to Ortho as outpatient. States she was seen by Ortho as outpatient today and sent to the ER for surgical intervention. On arrival, BP 186/79, HR 86, O2 sat 99% on RA, Afebrile. CBC unremarkable. Chemistry unremarkable. INR 1.0. CXR normal. Dr. Montoya consulted by ER physician, plan is for surgical intervention a.m. CBC/BMP: 03/04/17 0535 03/04/17 0535 Significant Findings Laboratory Tests Test 03/03/17 19:35 03/04/17 05:35 Total Bilirubin 1.3 MG/DL (0.2-1.0) 1.4 MG/DL (0.2-1.0) Creatinine 0.46 MG/DL (0.50-1.00) Albumin 3.2 GM/DL (3.4-5.0) Chloride Level 108 MEQ/L (98-107) Imaging Last Impressions Humerus X-Ray 03/04/17 0000 Signed Impressions: Service Date/Time: Saturday, March 04, 2017 10:28 - CONCLUSION: Good position and alignment on this postoperative view. Chin Vidales MD Elbow X-Ray 03/04/17 0000 Signed Impressions: Service Date/Time: Saturday, March 04, 2017 07:15 - CONCLUSION: Unremarkable limited examination of the left elbow. Sudeep Finnegan MD Chest X-Ray 03/03/17 0000 Signed Impressions: Service Date/Time: February 19:34 - CONCLUSION: Normal examination. Ravindra Moralez MD PE at Discharge GENERAL: This is a well-nourished, well-developed patient, in no apparent distress. CARDIOVASCULAR: Regular rate and rhythm without murmurs, gallops, or rubs. RESPIRATORY: Clear to auscultation. Breath sounds equal bilaterally. No wheezes , rales, or rhonchi. GASTROINTESTINAL: Abdomen soft, non-tender, nondistended. Normal active bowel sounds MUSCULOSKELETAL: left sling with post op dressing, other 3 Extremities without clubbing, cyanosis, or edema. NEURO: Alert & Oriented x4 to person, place, time, situation. Moves all ext x4 Pt update on day of discharge patient doing well, still with nerve block and minimal pain Discharge plan discussed with patient and spouse Hospital Course patient seen and evaluated in follow-up for elevated blood pressure in the setting of severe pain related to proximal humeral fracture. Fracture was repaired and patient was discharged home Pt Condition on Discharge: Fair Discharge Disposition: Discharge Home Discharge Time: <= 30 minutes Discharge Instructions DIET: Follow Instructions for: As Tolerated, No Restrictions Activities you can perform: Non Weight Bearing Follow up Referrals: Orthopedics - 2 Weeks @ [facility] with Dieter Lara MD New Medications: Oxycodone-Acetaminophen (Endocet) 7.5-325 mg Tab 1 TAB PO Q4H PRN for Pain Management, #60 TAB 0 Refills Sennosides (Senna-Lax) 8.6 Mg Tab 17.2 MG PO Q12H PRN for Moderate constipation, #62 TAB Khalida Lockwood MD Mar 05, 2017 10:12
[2017-03-05 12:00] VITALS: BP 135/77; PULSE 77; RESP 19; TEMP 97.5; O2SAT 97
[2017-03-05 12:15] VITALS: O2SAT 97
== END 2017-03-05 15:41 | disposition home or self-care (01) | DRG 494 ==
LOC: NEPE 17:13 → NEDA 19:27 → OBSVTOIN 19:29 → N06A 20:08
PROVIDERS: ADMIT Hospitalist; ATTEND Hospitalist
PROC: 3E0T3BZ Introduction of Anesthetic Agent into Peripheral Nerves and Plexi, Percutaneous Approach (ICD-10-PCS; 2017-03-04)
PROC: 0PSG04Z Reposition Left Humeral Shaft with Internal Fixation Device, Open Approach (ICD-10-PCS; principal; 2017-03-04 09:14)
DX: S42.202A Unspecified fracture of upper end of left humerus, initial encounter for closed fracture (principal); S09.90XA Unspecified injury of head, initial encounter; M81.0 Age-related osteoporosis without current pathological fracture; R03.0 Elevated blood-pressure reading, without diagnosis of hypertension; Z88.2 Allergy status to sulfonamides; Z88.0 Allergy status to penicillin; Z88.8 Allergy status to other drugs, medicaments and biological substances; W19.XXXA Unspecified fall, initial encounter; Z87.39 Personal history of other diseases of the musculoskeletal system and connective tissue
CPT/HCPCS: 70450; 71010; 72125; 73030; 73060; 73070; 76000; 80053; 85025; 85610; 93005; 96372; J0131; J1100; J1170; J1580; J1885; J2270; J3010; J3370; J7030; J7050